=== PATIENT | male | born 1940 | race Caucasian/White ===

== ENCOUNTER 2023-12-09 18:06 | Inpatient (IN) | payer MEDICARE ==
[~2023-12-09] VITALS: Ht 165.1 cm; Wt 69.9 kg
[2023-12-09] MEDS ORDERED: BRIM5DRO11 EACHEYE (19:13)
[2023-12-09] MEDS ORDERED: POLY15DR31 EACHEYE (19:13)
[2023-12-09] MEDS ORDERED: MAG30ORA PO (19:13)
[2023-12-09] MEDS ORDERED: QUET25TA PO (19:13)
[2023-12-09] MEDS ORDERED: LORA0.5T48 PO (19:13)
[2023-12-09] MEDS ORDERED: METO50TA16 PO (19:13)
[2023-12-09] MEDS ORDERED: DOCU-141 PO (19:13)
[2023-12-09] MEDS ORDERED: ATOR20TA PO (19:13)
[2023-12-09] MEDS ORDERED: QUET50TA PO (19:13)
[2023-12-09] MEDS ORDERED: FAMO10TA41 PO (19:13)
[2023-12-09] MEDS ORDERED: MEMA10TA PO (19:13)
[2023-12-09] MEDS ORDERED: LATA2.5D15 EACHEYE (19:13)
[2023-12-09] MEDS ORDERED: CYAN100T9 PO (19:13)
[2023-12-09] MEDS ORDERED: APIX5TAB PO (19:13)
[2023-12-09] MEDS ORDERED: ACET-3117 PO (19:13)
[2023-12-09] MEDS ORDERED: DILT30TA2 PO (19:13)
[2023-12-09] MEDS ORDERED: AMIO200T5 PO (19:13)
[2023-12-09] MEDS ORDERED: HALOPERIDOL LACTATE 5 MG/1 ML VIAL ONE (19:16)
[2023-12-09] MEDS: HALOPERIDOL LACTATE 5 MG/1 ML VIAL IM ONE (19:21)
[2023-12-09] MEDS ORDERED: diphenhydrAMINE 50 MG/1 ML VIAL ONE (19:37)
[2023-12-09 20:32] LABS: BASOPHILS # (AUTO) 0.1 K/UL (0.0-0.2); BASOPHILS % (AUTO) 0.7 % (0.0-2.0); EOSINOPHILS # (AUTO) 0.2 K/uL (0.0-0.7); EOSINOPHILS % (AUTO) 1.6 % (0.0-7.0); HEMATOCRIT 49.8 % (36.7-47.1); HEMOGLOBIN 16.5 g/dL (12.5-16.3); LYMPHOCYTES # (AUTO) 1.4 K/uL (0.8-4.8); LYMPHOCYTES % (AUTO) 13.5 % (20.5-51.5); MEAN CORPUSCULAR HEMOGLOBIN 29.1 uug (23.8-33.4); MEAN CORPUSCULAR HGB CONC 33 g/dL (32.5-36.3); MEAN CORPUSCULAR VOLUME 87.5 fL (73.0-96.2); MONOCYTES % (AUTO) 10.2 % (0.0-11.0); NEUTROPHILS # (AUTO) 7.6 K/uL (1.8-8.9); PLATELET COUNT (AUTO) 235 K/uL (152-348); RED BLOOD CELL COUNT(AUTO) 5.69 MIL/uL (4.06-5.63); RED CELL DISTRIBUTION WIDTH 14.2 % (12.1-16.2); WHITE BLOOD COUNT (AUTO) 10.3 K/uL (3.6-10.2)
[2023-12-09 20:42] LABS: DIFFERENTIAL COMMENT 1
[2023-12-09 20:49] LABS: *BLOOD, URINE NEGATIVE (NEGATIVE); *CLARITY,URINE CLEAR (CLEAR); *COLOR,URINE YELLOW (YELLOW); *KETONES,URINE 1+ (NEGATIVE); *PROTEIN,URINE TRACE (NEGATIVE); *UROBILINOGEN,URINE 0.2 E.U./dl (NORMAL); LEUKOCYTE ESTERASE ,URINE NEGATIVE (NEGATIVE); NITRITE, URINE NEGATIVE (NEGATIVE); PH,URINE 5.5 (5.0-8.0); UGLUCOSE NEGATIVE (NEGATIVE)
[2023-12-09 20:50] LABS: CALCIUM 10.4 mg/dL (8.5-10.1); CARBON DIOXIDE 28 mmol/L (21-32); CHLORIDE 114 mmol/L (98-107); CREATININE 2.1 mg/dL (0.6-1.3); GLUCOSE 130 mg/dL (74-106); POTASSIUM 3.9 mmol/L (3.5-5.1); SODIUM SERUM 152 mmol/L (136-145); UREA NITROGEN, BLOOD 51 mg/dL (7-18)
[2023-12-09 20:50] LABS: *BILIRUBIN,URIN 1+ (NEGATIVE); RBC,URINE 0-3 /HPF (0-3); WBC,URINE 0-3 /HPF (0-3)
[2023-12-09 21:03] LABS: ALANINE AMINOTRANSFERASE 26 U/L (16-63); ALBUMIN 3.6 g/dL (3.4-5.0); ALKALINE PHOSPHATASE 90 U/L (50-136); ASPARTATE AMINOTRANSFERASE 21 U/L (15-37); BILIRUBIN,DIRECT 0.3 mg/dL (0.0-0.2); BILIRUBIN,TOTAL 1.4 mg/dL (0.2-1.0); TOTAL PROTEIN, SERUM 7.5 g/dL (6.4-8.2)
[2023-12-09 21:05] LABS: ETHANOL < 3 MG/DL (0-10)
[2023-12-09 21:05] LABS: *AMPHETAMINE, URINE NEGATIVE (NEGATIVE); *BARBITURATE, URINE NEGATIVE (NEGATIVE); *BENZODIAZEPINE, URINE POSITIVE (NEGATIVE); *CANNABINOID, URINE NEGATIVE (NEGATIVE); *COCCAINE, URINE NEGATIVE (NEGATIVE); *OPIATE, URINE NEGATIVE (NEGATIVE); *PHENCYCLIDINE SCREEN,URINE NEGATIVE (NEGATIVE); FENTANYL, URINE NEGATIVE (NEGATIVE)
[2023-12-09] MEDS: IV NORMAL SALINE 1000 ML BAG IV ONE (22:00)
[2023-12-10 00:33] VITALS: O2SAT 98
[2023-12-10] MEDS ORDERED: ACETAMINOPHEN 325 MG TABLET PO PRN (00:45)
[2023-12-10] MEDS ORDERED: MAG HYDROX/AL HYDROX/SIMETH 30 ML LIQUID UDC PO PRN (00:45)
[2023-12-10] MEDS ORDERED: MAGNESIUM HYDROXIDE 30 ML LIQUID UDC PO PRN (00:45)
[2023-12-10] MEDS: LORAZEPAM 1 MG TABLET PO PRN (01:43)
[2023-12-10 07:30] VITALS: BP 117/69; TEMP 98; O2SAT 96
[2023-12-10] MEDS: DIVALPROEX SPRINKLE 125 MG CAP.SPRINK PO SCH (08:44)
[2023-12-10] MEDS: QUETIAPINE FUMARATE 25 MG TABLET PO SCH ×2 (08:44→20:24)
[2023-12-10] MEDS: MEMANTINE HCL 5 MG TABLET PO SCH (08:44)
[2023-12-10] MEDS ORDERED: MEMANTINE HCL 10 MG TABLET PO SCH (09:00)
[2023-12-10] MEDS ORDERED: BRIM10DR6 EACHEYE (12:02)
[2023-12-10] MEDS ORDERED: THIA100T74 PO (12:07)
[2023-12-10] MEDS: METOPROLOL TARTRATE 50 MG TABLET PO SCH (13:00)
[2023-12-10] MEDS: DILTIAZEM HCL 30 MG TABLET PO SCH (13:15)
[2023-12-10 15:50] VITALS: BP 111/57; TEMP 98.2; O2SAT 96
[2023-12-10] MEDS: AMIODARONE HCL 200 MG TABLET PO SCH (16:50)
[2023-12-10] MEDS: DOCUSATE SODIUM 100 MG CAPSULE PO SCH (16:51)
[2023-12-10] MEDS ORDERED: APIXABAN 5 MG TABLET PO SCH (17:00)
[2023-12-10] MEDS ORDERED: BRIMONIDINE 0.2% OPHT DROP 10 ML BOTTLE EACHEYE SCH (17:00)
[2023-12-10] MEDS: APIXABAN 2.5 MG TABLET PO SCH (17:39)
[2023-12-10] MEDS: LATANOPROST OPHT DROP 2.5 ML BOTTLE EACHEYE SCH (17:39)
[2023-12-10] MEDS: BRIMONIDINE 0.2% OPHT DROP 10 ML BOTTLE EACHEYE SCH (17:47)
[2023-12-10] MEDS ORDERED: REMEDY ESSENTIAL ZINC PASTE 113 GM TOP PRN (19:30)
[2023-12-10 19:42] VITALS: BP 112/61; TEMP 98.1; O2SAT 95
[2023-12-10] MEDS: ATORVASTATIN 20 MG TABLET PO SCH (20:24)
[2023-12-10] MEDS: REMEDY ESSENTIAL ZINC PASTE 113 GM TOP SCH (20:26)
[2023-12-11] MEDS: ZOLPIDEM 5 MG TABLET PO PRN (01:28)
[2023-12-11 07:34] VITALS: BP 113/71; TEMP 98.2; O2SAT 98
[2023-12-11 08:01] LABS: BASOPHILS # (AUTO) 0.1 K/UL (0.0-0.2); BASOPHILS % (AUTO) 1.2 % (0.0-2.0); EOSINOPHILS # (AUTO) 0.4 K/uL (0.0-0.7); EOSINOPHILS % (AUTO) 3.3 % (0.0-7.0); HEMATOCRIT 51.8 % (36.7-47.1); HEMOGLOBIN 17.1 g/dL (12.5-16.3); LYMPHOCYTES # (AUTO) 1.6 K/uL (0.8-4.8); LYMPHOCYTES % (AUTO) 14.4 % (20.5-51.5); MEAN CORPUSCULAR HEMOGLOBIN 29.4 uug (23.8-33.4); MEAN CORPUSCULAR HGB CONC 33 g/dL (32.5-36.3); MEAN CORPUSCULAR VOLUME 88.7 fL (73.0-96.2); MONOCYTES # (AUTO) 0.8 K/uL (0.1-1.30); NEUTROPHILS # (AUTO) 8.4 K/uL (1.8-8.9); NEUTROPHILS % (AUTO) 74.1 % (38.5-71.5); PLATELET COUNT (AUTO) 221 K/uL (152-348); RED BLOOD CELL COUNT(AUTO) 5.84 MIL/uL (4.06-5.63); RED CELL DISTRIBUTION WIDTH 14.5 % (12.1-16.2); WHITE BLOOD COUNT (AUTO) 11.3 K/uL (3.6-10.2)
[2023-12-11 08:08] LABS: DIFFERENTIAL COMMENT 1
[2023-12-11 08:16] LABS: CALCIUM 9.7 mg/dL (8.5-10.1); CARBON DIOXIDE 24 mmol/L (21-32); CHLORIDE 116 mmol/L (98-107); CREATINE KINASE, TOTAL 297 U/L (39-308); CREATININE 1.8 mg/dL (0.6-1.3); GLUCOSE 150 mg/dL (74-106); GLUCOSE FASTING 150 mg/dL (70-115); MAGNESIUM 2.7 mg/dL (1.8-2.4); PHOSPHOROUS 3.1 mg/dL (2.5-4.9); SODIUM SERUM 151 mmol/L (136-145); UREA NITROGEN, BLOOD 51 mg/dL (7-18)
[2023-12-11] MEDS: THIAMINE HCL 100 MG TABLET PO SCH (08:38)
[2023-12-11] MEDS ORDERED: CYANOCOBALAMIN 100 MCG TABLET PO SCH (09:00)
[2023-12-11 09:29] LABS: THYROID STIMULATING HORMONE 2.596 mIU/mL (0.358-3.740)
[2023-12-11 16:15] VITALS: BP 165/97; TEMP 98.2; O2SAT 96
[2023-12-11 17:02] VITALS: BP 126/82; TEMP 98.2; O2SAT 98
[2023-12-11 20:00] VITALS: BP 126/87; TEMP 98; O2SAT 98
[2023-12-12 07:18] LABS: *CLARITY,URINE CLEAR (CLEAR); *COLOR,URINE YELLOW (YELLOW); *KETONES,URINE NEGATIVE (NEGATIVE); *PROTEIN,URINE NEGATIVE (NEGATIVE); *UROBILINOGEN,URINE 0.2 E.U./dl (NORMAL); LEUKOCYTE ESTERASE ,URINE 1+ (NEGATIVE); NITRITE, URINE NEGATIVE (NEGATIVE); PH,URINE 5.5 (5.0-8.0); UGLUCOSE NEGATIVE (NEGATIVE)
[2023-12-12 07:19] LABS: *BILIRUBIN,URIN 1+ (NEGATIVE); *BLOOD, URINE TRACE (NEGATIVE)
[2023-12-12 08:03] LABS: *SODIUM RNDM,URINE 33 mmol/L (40-220)
[2023-12-12 08:03] LABS: *URINE TOTAL PROTEIN RANDOM 39.4 mg/dL (<150/24HR)
[2023-12-12 08:09] VITALS: BP 102/56; TEMP 98.4; O2SAT 98
[2023-12-12 08:27] LABS: BACTERIA,URINE MANY /HPF (NONE SEEN); RBC,URINE 0-3 /HPF (0-3); SQUAMOUS EPITHELIAL CELL,UR MODERATE /HPF (NONE SEEN)
[2023-12-12 08:34] LABS: BASOPHILS # (AUTO) 0.1 K/UL (0.0-0.2); BASOPHILS % (AUTO) 0.8 % (0.0-2.0); EOSINOPHILS # (AUTO) 0.2 K/uL (0.0-0.7); EOSINOPHILS % (AUTO) 1.7 % (0.0-7.0); HEMOGLOBIN 16.6 g/dL (12.5-16.3); LYMPHOCYTES # (AUTO) 1.4 K/uL (0.8-4.8); LYMPHOCYTES % (AUTO) 10.2 % (20.5-51.5); MEAN CORPUSCULAR HEMOGLOBIN 29.4 uug (23.8-33.4); MEAN CORPUSCULAR HGB CONC 33 g/dL (32.5-36.3); MEAN CORPUSCULAR VOLUME 88.6 fL (73.0-96.2); MONOCYTES % (AUTO) 7.4 % (0.0-11.0); NEUTROPHILS # (AUTO) 11.2 K/uL (1.8-8.9); NEUTROPHILS % (AUTO) 79.9 % (38.5-71.5); PLATELET COUNT (AUTO) 224 K/uL (152-348); RED BLOOD CELL COUNT(AUTO) 5.65 MIL/uL (4.06-5.63); RED CELL DISTRIBUTION WIDTH 14.3 % (12.1-16.2); WHITE BLOOD COUNT (AUTO) 14.1 K/uL (3.6-10.2)
[2023-12-12 08:46] LABS: DIFFERENTIAL COMMENT 1
[2023-12-12] MEDS: LORAZEPAM 1 MG TABLET PO PRN (09:04)
[2023-12-12 09:16] LABS: CALCIUM 9.9 mg/dL (8.5-10.1); CARBON DIOXIDE 25 mmol/L (21-32); CHLORIDE 120 mmol/L (98-107); CREATININE 2.4 mg/dL (0.6-1.3); GLUCOSE 197 mg/dL (74-106); PHOSPHOROUS 3.8 mg/dL (2.5-4.9); POTASSIUM 4.3 mmol/L (3.5-5.1); UREA NITROGEN, BLOOD 66 mg/dL (7-18)
[2023-12-12 09:27] LABS: SODIUM SERUM 157 mmol/L (136-145)
[2023-12-12 11:10] LABS: FOLATE (FOLIC ACID), SERUM 12.4 ng/mL (>3.0)
[2023-12-12] MEDS ORDERED: CIPROFLOXACIN HCL 250 MG TABLET PO SCH (11:30)
[2023-12-12 12:07] LABS: A/G RATIO 1.2 (0.7-1.7); ALBUMIN 3.6 g/dL (2.9-4.4); ALPHA-1-GLOBULIN 0.3 g/dL (0.0-0.4); ALPHA-2-GLOBULIN 0.9 g/dL (0.4-1.0); GAMMA GLOBULIN 0.8 g/dL (0.4-1.8); M-SPIKE 0.3 g/dL (Not Observed)
[2023-12-12] MEDS: SULFAMETH/TRIMETH 800/160 MG TABLET PO SCH (12:23)
[2023-12-12] MEDS: ENSURE WITH FIBER 237 ML LIQUID (CHOCOLATE) PO SCH (14:04)
[2023-12-12 15:29] VITALS: BP 118/71; TEMP 98; O2SAT 98
[2023-12-16 08:06] LABS: A/G RATIO 0.9 (0.7-1.7); ALBUMIN 3.3 g/dL (2.9-4.4); ALPHA-1-GLOBULIN 0.4 g/dL (0.0-0.4); ALPHA-2-GLOBULIN 1.1 g/dL (0.4-1.0); BETA GLOBULIN 1.2 g/dL (0.7-1.3); GAMMA GLOBULIN 0.9 g/dL (0.4-1.8); GLOBULIN, TOTAL 3.5 g/dL (2.2-3.9); M-SPIKE 0.3 g/dL (Not Observed)
[2023-12-17] MEDS ORDERED: OLAN10VI IM (16:04)
[2023-12-17] MEDS ORDERED: MENT113O TOP (16:04)
[2023-12-17] MEDS ORDERED: CIPR-262 PO (16:04)
[2023-12-17] MEDS ORDERED: DOCU-141 PO (16:04)
[2023-12-17] MEDS ORDERED: ACET325T53 PO (16:04)
[2023-12-17] MEDS ORDERED: DIVA125C2 PO (16:04)
[2023-12-17] MEDS ORDERED: OLAN5TAB6 PO (16:04)
[2023-12-17] MEDS ORDERED: AMIO100T4 PO (16:04)
[2023-12-17] MEDS ORDERED: DILT180C66 PO (16:04)
[2023-12-17] MEDS ORDERED: NUTR1PAC14 PO (16:04)
== END 2023-12-12 16:45 | DRG 885 ==
LOC: ER 18:09 → GPS 23:50
PROVIDERS: ADMIT Psychiatry & Neurology Psychiatry; ATTEND Internal Medicine
DX: F29 Unspecified psychosis not due to a substance or known physiological condition (principal); N18.9 Chronic kidney disease, unspecified; N17.9 Acute kidney failure, unspecified; G92.8 Other toxic encephalopathy; F02.811 Dementia in other diseases classified elsewhere, unspecified severity, with agitation; E87.0 Hyperosmolality and hypernatremia; R17 Unspecified jaundice; N39.0 Urinary tract infection, site not specified; G30.9 Alzheimer's disease, unspecified; Z79.899 Other long term (current) drug therapy; Z79.01 Long term (current) use of anticoagulants; E83.52 Hypercalcemia; E78.5 Hyperlipidemia, unspecified; I12.9 Hypertensive chronic kidney disease with stage 1 through stage 4 chronic kidney disease, or unspecified chronic kidney disease; I25.2 Old myocardial infarction; I48.91 Unspecified atrial fibrillation; Z95.0 Presence of cardiac pacemaker; Z85.51 Personal history of malignant neoplasm of bladder; D75.1 Secondary polycythemia; S06.9XAD Unspecified intracranial injury with loss of consciousness status unknown, subsequent encounter; W19.XXXD Unspecified fall, subsequent encounter
CPT/HCPCS: 36415; 70450; 71045; 82746; 83735; 83921; 83970; 84100; 84155; 84165; 84300; 84443; 85025; 93005; G0480; J1200; J1630; J7040

== ENCOUNTER 2023-12-17 17:40 | Inpatient (IN) | payer MEDICARE ==
[~2023-12-17] VITALS: Ht 167.6 cm; Wt 68.5 kg
[~2023-12-17 17:40] MED LIST: ACET-3117 PO; ACET325T53 PO; AMIO100T4 PO; AMIO200T5 PO; APIX5TAB PO; ATOR20TA PO; BRIM10DR6 EACHEYE; CIPR-262 PO; DILT180C66 PO; DILT30TA2 PO; DIVA125C2 PO; DOCU-141 PO; LATA2.5D15 EACHEYE; MENT113O TOP; METO50TA16 PO; NUTR1PAC14 PO; OLAN10VI IM; OLAN5TAB6 PO
[2023-12-17] MEDS ORDERED: MAGNESIUM HYDROXIDE 30 ML LIQUID UDC PO PRN (18:45)
[2023-12-17] MEDS ORDERED: LORAZEPAM 1 MG TABLET PO PRN (18:45)
[2023-12-17] MEDS ORDERED: MAG HYDROX/AL HYDROX/SIMETH 30 ML LIQUID UDC PO PRN (18:45)
[2023-12-17] MEDS ORDERED: OLANZAPINE 10 MG VIAL IM PRN (20:00)
[2023-12-17] MEDS ORDERED: ACETAMINOPHEN 325 MG TABLET-SA PATIENTS-PAIN ONLY PO PRN (20:00)
[2023-12-17] MEDS ORDERED: CALMOSEPTINE 113 GM OINTMENT TOP PRN (20:00)
[2023-12-17 20:02] VITALS: BP 101/59; TEMP 97.2; O2SAT 96
[2023-12-17] MEDS ORDERED: CIPROFLOXACIN HCL 500 MG PO SCH (21:00)
[2023-12-17] MEDS ORDERED: DIVALPROEX SPRINKLE 125 MG CAP.SPRINK PO SCH (21:00)
[2023-12-17] MEDS: AMIODARONE HCL 200 MG TABLET PO SCH (21:14)
[2023-12-18 07:15] VITALS: BP 97/53; TEMP 98; O2SAT 98
[2023-12-18 07:54] LABS: BASOPHILS # (AUTO) 0.1 K/UL (0.0-0.2); BASOPHILS % (AUTO) 0.9 % (0.0-2.0); EOSINOPHILS # (AUTO) 0.2 K/uL (0.0-0.7); EOSINOPHILS % (AUTO) 2.2 % (0.0-7.0); LYMPHOCYTES # (AUTO) 2.2 K/uL (0.8-4.8); LYMPHOCYTES % (AUTO) 21.6 % (20.5-51.5); MEAN CORPUSCULAR HEMOGLOBIN 29.7 uug (23.8-33.4); MEAN CORPUSCULAR HGB CONC 34 g/dL (32.5-36.3); MONOCYTES # (AUTO) 1.2 K/uL (0.1-1.30); MONOCYTES % (AUTO) 12.3 % (0.0-11.0); NEUTROPHILS # (AUTO) 6.4 K/uL (1.8-8.9); PLATELET COUNT (AUTO) 188 K/uL (152-348); RED CELL DISTRIBUTION WIDTH 13.9 % (12.1-16.2); WHITE BLOOD COUNT (AUTO) 10.1 K/uL (3.6-10.2)
[2023-12-18 07:59] LABS: DIFFERENTIAL COMMENT 1
[2023-12-18 08:09] LABS: ALANINE AMINOTRANSFERASE 42 U/L (16-63); ALBUMIN 3.1 g/dL (3.4-5.0); ALKALINE PHOSPHATASE 87 U/L (50-136); ASPARTATE AMINOTRANSFERASE 26 U/L (15-37); BILIRUBIN,TOTAL 1.9 mg/dL (0.2-1.0); CARBON DIOXIDE 26 mmol/L (21-32); CHLORIDE 110 mmol/L (98-107); CREATININE 1.6 mg/dL (0.6-1.3); GLUCOSE 122 mg/dL (74-106); POTASSIUM 3.8 mmol/L (3.5-5.1); SODIUM SERUM 147 mmol/L (136-145); TOTAL PROTEIN, SERUM 6.7 g/dL (6.4-8.2); UREA NITROGEN, BLOOD 21 mg/dL (7-18)
[2023-12-18] MEDS ORDERED: CIPROFLOXACIN HCL 250 MG TABLET PO SCH ×3 (09:00)
[2023-12-18] MEDS: BRIMONIDINE 0.2% OPHT DROP 10 ML BOTTLE EACHEYE SCH (09:00)
[2023-12-18] MEDS ORDERED: OLANZAPINE ZYDIS 5 MG TAB.RAPDIS PO SCH (09:00)
[2023-12-18] MEDS: ARGININE/GLUTAMINE/CALCIUM BMB 1 EACH POWD.PACK PO SCH (09:00)
[2023-12-18] MEDS ORDERED: BRIMONIDINE 0.2% OPHT DROP 10 ML BOTTLE EACHEYE SCH (09:00)
[2023-12-18] MEDS: DILTIAZEM HCL CD 180 MG CAP.SR.24H PO SCH (09:00)
[2023-12-18] MEDS: DIVALPROEX SPRINKLE 125 MG CAP.SPRINK PO SCH (09:59)
[2023-12-18] MEDS: OLANZAPINE ZYDIS 5 MG TAB.RAPDIS PO SCH (09:59)
[2023-12-18] MEDS: DOCUSATE SODIUM 100 MG CAPSULE PO SCH (10:00)
[2023-12-18] MEDS: APIXABAN 5 MG TABLET PO SCH (10:03)
[2023-12-18 10:18] LABS: VALPROIC ACID < 3 ug/mL (50-100)
[2023-12-18] MEDS: SULFAMETH/TRIMETH 800/160 MG TABLET PO SCH (15:03)
[2023-12-18 16:00] VITALS: BP 90/49; TEMP 98; O2SAT 98
[2023-12-18] MEDS ORDERED: DILT180C91 PO (17:03)
[2023-12-18] MEDS ORDERED: LATANOPROST OPHT DROP 2.5 ML BOTTLE EACHEYE SCH (18:00)
[2023-12-18 20:00] VITALS: BP 95/50; TEMP 98.1; O2SAT 99
[2023-12-18] MEDS: LATANOPROST OPHT DROP 2.5 ML BOTTLE EACHEYE SCH (20:27)
[2023-12-18] MEDS: LORAZEPAM 1 MG TABLET PO PRN (22:15)
[2023-12-19 07:30] VITALS: BP 103/53; TEMP 98.2; O2SAT 96
[2023-12-19] MEDS: DIVALPROEX SPRINKLE 125 MG CAP.SPRINK PO SCH (09:43)
[2023-12-19 15:01] VITALS: BP 104/59; TEMP 98; O2SAT 96
[2023-12-19] MEDS: ACETAMINOPHEN 325 MG TABLET PO PRN (18:17)
[2023-12-19 20:45] VITALS: BP 100/56
[2023-12-20] MEDS: REMEDY ESSENTIAL ZINC PASTE 113 GM TOP PRN (06:58)
[2023-12-20 07:55] VITALS: BP 149/86; TEMP 98.2; O2SAT 96
[2023-12-20 08:28] LABS: ALANINE AMINOTRANSFERASE 36 U/L (16-63); ALBUMIN 2.8 g/dL (3.4-5.0); ALKALINE PHOSPHATASE 86 U/L (50-136); ASPARTATE AMINOTRANSFERASE 23 U/L (15-37); CARBON DIOXIDE 27 mmol/L (21-32); CHLORIDE 111 mmol/L (98-107); CREATINE KINASE, TOTAL 400 U/L (39-308); CREATININE 1.8 mg/dL (0.6-1.3); GLUCOSE 141 mg/dL (74-106); MAGNESIUM 2.5 mg/dL (1.8-2.4); PHOSPHOROUS 2.9 mg/dL (2.5-4.9); POTASSIUM 3.6 mmol/L (3.5-5.1); SODIUM SERUM 149 mmol/L (136-145); TOTAL PROTEIN, SERUM 6.7 g/dL (6.4-8.2); UREA NITROGEN, BLOOD 33 mg/dL (7-18)
[2023-12-20 15:09] VITALS: BP 150/57; TEMP 98; O2SAT 96
[2023-12-20 20:00] VITALS: BP 145/85; TEMP 98.1; O2SAT 96
[2023-12-21] MEDS: ZOLPIDEM 5 MG TABLET PO PRN (02:16)
[2023-12-21 07:56] VITALS: BP 111/77; TEMP 97.6; O2SAT 96
[2023-12-21 16:13] VITALS: BP 103/56; TEMP 97.7; O2SAT 96
[2023-12-21 20:20] VITALS: BP 132/53; TEMP 98.2; O2SAT 98
[2023-12-21] MEDS: ACETAMINOPHEN 650 MG SUPP.RECT RC PRN (21:08)
[2023-12-22 07:10] LABS: BASOPHILS # (AUTO) 0.1 K/UL (0.0-0.2); EOSINOPHILS # (AUTO) 0.4 K/uL (0.0-0.7); EOSINOPHILS % (AUTO) 5.2 % (0.0-7.0); HEMATOCRIT 39.1 % (36.7-47.1); HEMOGLOBIN 13.1 g/dL (12.5-16.3); LYMPHOCYTES # (AUTO) 1.6 K/uL (0.8-4.8); LYMPHOCYTES % (AUTO) 20.3 % (20.5-51.5); MEAN CORPUSCULAR HEMOGLOBIN 29.4 uug (23.8-33.4); MEAN CORPUSCULAR HGB CONC 34 g/dL (32.5-36.3); MEAN CORPUSCULAR VOLUME 87.3 fL (73.0-96.2); MONOCYTES # (AUTO) 0.9 K/uL (0.1-1.30); NEUTROPHILS # (AUTO) 4.9 K/uL (1.8-8.9); NEUTROPHILS % (AUTO) 62.5 % (38.5-71.5); PLATELET COUNT (AUTO) 173 K/uL (152-348); RED BLOOD CELL COUNT(AUTO) 4.48 MIL/uL (4.06-5.63); RED CELL DISTRIBUTION WIDTH 14.1 % (12.1-16.2); WHITE BLOOD COUNT (AUTO) 7.8 K/uL (3.6-10.2)
[2023-12-22 07:25] LABS: DIFFERENTIAL COMMENT 1
[2023-12-22 07:27] LABS: ALANINE AMINOTRANSFERASE 27 U/L (16-63); ALBUMIN 2.4 g/dL (3.4-5.0); ALKALINE PHOSPHATASE 82 U/L (50-136); ASPARTATE AMINOTRANSFERASE 17 U/L (15-37); BILIRUBIN,TOTAL 1.2 mg/dL (0.2-1.0); CALCIUM 8.9 mg/dL (8.5-10.1); CARBON DIOXIDE 28 mmol/L (21-32); CHLORIDE 115 mmol/L (98-107); CREATININE 1.6 mg/dL (0.6-1.3); GLUCOSE 106 mg/dL (74-106); MAGNESIUM 2.5 mg/dL (1.8-2.4); POTASSIUM 3.6 mmol/L (3.5-5.1); SODIUM SERUM 151 mmol/L (136-145); TOTAL PROTEIN, SERUM 5.8 g/dL (6.4-8.2); UREA NITROGEN, BLOOD 41 mg/dL (7-18)
[2023-12-22 08:04] LABS: CREATINE KINASE, TOTAL 179 U/L (39-308)
[2023-12-22 09:21] VITALS: BP 93/60; TEMP 98; O2SAT 96
[2023-12-22 20:00] VITALS: BP 133/73; TEMP 98.1; O2SAT 95
[2023-12-23 08:22] VITALS: BP 114/57; TEMP 97.9; O2SAT 96
[2023-12-23] MEDS: GLUCERNA SHAKE 237 ML CAN PO SCH (08:30)
[2023-12-23 16:35] VITALS: BP 183/100; TEMP 98; O2SAT 96
[2023-12-23 20:00] VITALS: BP 121/62; TEMP 98.1; O2SAT 97
[2023-12-23] MEDS: OLANZAPINE 5 MG TABLET PO SCH (20:16)
[2023-12-24 04:07] LABS: ALBUMIN 2.6 g/dL (2.9-4.4); ALPHA-1-GLOBULIN 0.3 g/dL (0.0-0.4); ALPHA-2-GLOBULIN 0.8 g/dL (0.4-1.0); BETA GLOBULIN 0.8 g/dL (0.7-1.3); GAMMA GLOBULIN 0.7 g/dL (0.4-1.8); GLOBULIN, TOTAL 2.6 g/dL (2.2-3.9); M-SPIKE 0.3 g/dL (Not Observed)
[2023-12-24 07:50] VITALS: BP 104/50; TEMP 98.2; O2SAT 96
[2023-12-24] MEDS ORDERED: LORAZEPAM 1 MG TABLET PO PRN (08:00)
[2023-12-24] MEDS: LORAZEPAM 0.5 MG TABLET PO PRN (12:12)
[2023-12-24 15:47] VITALS: BP 123/67; TEMP 98.2; O2SAT 98
[2023-12-24] MEDS: MIRTAZAPINE 15 MG TABLET PO SCH (20:06)
[2023-12-25 08:07] VITALS: BP 147/68; TEMP 98.4; O2SAT 98
[2023-12-25] MEDS: DIVALPROEX SPRINKLE 125 MG CAP.SPRINK PO SCH (08:37)
[2023-12-25 10:29] LABS: BASOPHILS # (AUTO) 0.1 K/UL (0.0-0.2); BASOPHILS % (AUTO) 1.1 % (0.0-2.0); EOSINOPHILS # (AUTO) 0.2 K/uL (0.0-0.7); HEMATOCRIT 44.9 % (36.7-47.1); HEMOGLOBIN 14.8 g/dL (12.5-16.3); LYMPHOCYTES # (AUTO) 1.8 K/uL (0.8-4.8); LYMPHOCYTES % (AUTO) 19.2 % (20.5-51.5); MEAN CORPUSCULAR HEMOGLOBIN 28.9 uug (23.8-33.4); MEAN CORPUSCULAR HGB CONC 33 g/dL (32.5-36.3); MEAN CORPUSCULAR VOLUME 87.7 fL (73.0-96.2); MONOCYTES # (AUTO) 0.7 K/uL (0.1-1.30); NEUTROPHILS # (AUTO) 6.7 K/uL (1.8-8.9); NEUTROPHILS % (AUTO) 70.7 % (38.5-71.5); PLATELET COUNT (AUTO) 278 K/uL (152-348); RED BLOOD CELL COUNT(AUTO) 5.12 MIL/uL (4.06-5.63); RED CELL DISTRIBUTION WIDTH 14.4 % (12.1-16.2); WHITE BLOOD COUNT (AUTO) 9.4 K/uL (3.6-10.2)
[2023-12-25 10:48] LABS: DIFFERENTIAL COMMENT 1
[2023-12-25 10:57] LABS: ALANINE AMINOTRANSFERASE 31 U/L (16-63); ALKALINE PHOSPHATASE 80 U/L (50-136); ASPARTATE AMINOTRANSFERASE 13 U/L (15-37); BILIRUBIN,TOTAL 1.4 mg/dL (0.2-1.0); CALCIUM 10.1 mg/dL (8.5-10.1); CARBON DIOXIDE 30 mmol/L (21-32); CHLORIDE 115 mmol/L (98-107); CREATININE 1.5 mg/dL (0.6-1.3); GLUCOSE 125 mg/dL (74-106); MAGNESIUM 2.6 mg/dL (1.8-2.4); POTASSIUM 5.3 mmol/L (3.5-5.1); SODIUM SERUM 154 mmol/L (136-145); TOTAL PROTEIN, SERUM 6.9 g/dL (6.4-8.2); UREA NITROGEN, BLOOD 41 mg/dL (7-18)
[2023-12-25 15:44] VITALS: BP 114/62; TEMP 98.4; O2SAT 96
[2023-12-25] MEDS ORDERED: IV 1/2NS 1000 ML 1,000 ML IV SCH (16:00)
[2023-12-25] MEDS: IV 1/2NS 1000 ML 1,000 ML IV SCH (19:18)
[2023-12-25 19:49] VITALS: BP 121/63; TEMP 98.2; O2SAT 96
[2023-12-26 08:04] VITALS: BP 123/50; TEMP 98; O2SAT 96
[2023-12-26 10:05] LABS: CALCIUM 9.6 mg/dL (8.5-10.1); CARBON DIOXIDE 27 mmol/L (21-32); CHLORIDE 117 mmol/L (98-107); CREATININE 1.6 mg/dL (0.6-1.3); GLUCOSE 107 mg/dL (74-106); POTASSIUM 4.4 mmol/L (3.5-5.1); SODIUM SERUM 153 mmol/L (136-145); UREA NITROGEN, BLOOD 45 mg/dL (7-18)
[2023-12-26 15:19] VITALS: BP 154/89; TEMP 98; O2SAT 96
[2023-12-26 20:05] VITALS: BP 148/74; TEMP 97.9; O2SAT 95
[2023-12-27 07:30] VITALS: BP 115/53; TEMP 98.2; O2SAT 96
[2023-12-27 09:14] VITALS: BP 115/53
== END 2023-12-27 12:00 | DRG 885 ==
LOC: GPS 17:40
PROVIDERS: ADMIT Psychiatry & Neurology Psychiatry; ATTEND Nurse Practitioner Acute Care
DX: F29 Unspecified psychosis not due to a substance or known physiological condition (principal); E43 Unspecified severe protein-calorie malnutrition; N17.0 Acute kidney failure with tubular necrosis; N18.9 Chronic kidney disease, unspecified; G93.41 Metabolic encephalopathy; F03.911 Unspecified dementia, unspecified severity, with agitation; F03.93 Unspecified dementia, unspecified severity, with mood disturbance; F03.92 Unspecified dementia, unspecified severity, with psychotic disturbance; E87.0 Hyperosmolality and hypernatremia; Z87.440 Personal history of urinary (tract) infections; I48.91 Unspecified atrial fibrillation; Z79.01 Long term (current) use of anticoagulants; I12.9 Hypertensive chronic kidney disease with stage 1 through stage 4 chronic kidney disease, or unspecified chronic kidney disease; H40.9 Unspecified glaucoma; R62.7 Adult failure to thrive; E78.5 Hyperlipidemia, unspecified; Z68.24 Body mass index [BMI] 24.0-24.9, adult
CPT/HCPCS: 36415; 71045; 71046; 80164; 83735; 83970; 84100; 84155; 84165; 85025